=== PATIENT | female | born 1970 | race Hispanic/Latino ===

== ENCOUNTER 2024-02-19 18:32 | Emergency (ER) | payer OTHER ==
[~2024-02-19] VITALS: Ht 144.8 cm; Wt 105.2 kg
[2024-02-19 18:36] VITALS: PULSE 56; RESP 18; TEMP 98
[2024-02-19 18:46] LABS: BASOPHILS # (AUTO) 0.1 (0.0-0.1); BASOPHILS % 0.8 % (0.0-1.0); EOSINOPHILS # (AUTO) 0.8 (0.0-0.4); HEMATOCRIT 39.7 % (34.2-44.1); HEMOGLOBIN 12.6 g/dL (12.0-16.0); LYMPHOCYTES # (AUTO) 3.4 (1.0-3.2); MEAN CORPUSCULAR HEMOGLOBIN 29.4 pg (28-32); MEAN CORPUSCULAR HGB CONC 31.7 g/dL (31-35); MEAN CORPUSCULAR VOLUME 92.8 fL (81-99); MONOCYTES # (AUTO) 0.7 (0.2-0.8); MONOCYTES % 8.3 % (4.4-11.3); NEUTROPHILS # (AUTO) 3.3 (2.1-6.9); NEUTROPHILS % 39.7 % (38.7-80.0); PLATELET COUNT 232 x10e3/uL (140-360); RED BLOOD COUNT 4.28 x10e6/uL (3.6-5.1); WHITE BLOOD COUNT 8.36 x10e3/uL (4.8-10.8)
[2024-02-19] MEDS ORDERED: SODIUM CHLORIDE 0.9% 1000ML 1,000 ML ONE (18:50)
[2024-02-19] MEDS: KETOROLAC TROMETHAMINE 30 MG/ML VIAL IV STA (18:55)
[2024-02-19] MEDS: ONDANSETRON HCL INJ 2MG/ML 2ML 2 MG/ML VIAL IV STA (18:55)
[2024-02-19] MEDS: DICYCLOMINE HCL 20 MG/2 ML VIAL IM ONE (18:56)
[2024-02-19 19:03] LABS: ALBUMIN 3.8 g/dL (3.5-5.0); ANION GAP 15.7 mmol/L (8-16); BILIRUBIN,TOTAL 0.5 mg/dL (0.2-1.2); CALCIUM 9.5 mg/dL (8.4-10.2); CREATININE, SERUM 0.94 mg/dL (0.57-1.11); POTASSIUM 3.7 mmol/L (3.5-5.1); TOTAL PROTEIN 7.7 g/dL (6.5-8.1)
[2024-02-19] MEDS ORDERED: ONDANSETRON ODT4 MG SL (19:09)
[2024-02-19] MEDS ORDERED: DICYCLOMINE HCL20 MG PO (19:09)
[2024-02-19] MEDS ORDERED: PANTOPRAZOLE SO40 MG PO (19:09)
[2024-02-19 19:19] LABS: TROPONIN I 0.008 ng/mL (0-0.300)
[2024-02-19 19:53] VITALS: BP 137/70; O2SAT 96
== END 2024-02-19 19:48 | disposition home or self-care (01) ==
LOC: ER 18:35
DX: R10.10 Upper abdominal pain, unspecified (principal); K80.50 Calculus of bile duct without cholangitis or cholecystitis without obstruction; R11.2 Nausea with vomiting, unspecified
CPT/HCPCS: 36415; 80053; 83690; 84484; 85025; 93005; 99284; J0500; J1885; J2405; J2470; J7030